=== PATIENT | female | born 1975 | race African-American/Black ===

== ENCOUNTER 2017-07-23 13:09 | Emergency (ER) | payer OTHER ==
[~2017-07-23] VITALS: Ht 157.5 cm; Wt 128.8 kg
--- NOTE | ~2017-07-23 | EKG ---
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
[2017-07-23 14:07] LABS: ABSOLUTE NEUTROPHILS 3.5 thou/uL (1.4-8.2); BASOPHILS 1.1 % (0.0-2.0); EOSINOPHILS 1.2 % (0.0-3.0); HEMOGLOBIN 12.4 gm/dL (12.0-15.0); LYMPHOCYTES 33.3 % (24.0-44.0); MCH 26.8 pg (26.0-34.0); MCHC 32.7 g/dL (28.0-37.0); MCV 81.9 fL (80.0-100.0); MONOCYTES 10.3 % (1.0-8.0); PLATELET COUNT 185 thou/uL (150-400); POLYS 54.1 % (36.0-66.0); RBC 4.64 mil/uL (4.20-5.00); RDW 15.7 % (10.5-14.5); WBC 6.5 thou/uL (4.0-11.0)
[2017-07-23 14:08] LABS: MANUAL DIFF NO
[2017-07-23 14:24] LABS: ANION GAP 6 mmol/L (7-16); BUN 7 mg/dL (7-18); CALCIUM 8.6 mg/dL (8.5-10.1); CHLORIDE 105 mmol/L (98-107); CO2 31 mmol/L (21-32); GLUCOSE 88 mg/dL (74-106); POTASSIUM 3.6 mmol/L (3.5-5.1); SODIUM 142 mmol/L (136-145)
[2017-07-23 14:25] LABS: TROPONIN-I < 0.04 ng/mL (<0.04-0.07)
[2017-07-23] MEDS ORDERED: ULTRAM 50MG TAB50 MG PO (15:19)
[2017-07-23 16:02] VITALS: BP 183/99
== END 2017-07-23 15:26 | disposition home or self-care (01) ==
LOC: ER 13:09
PROVIDERS: Nurse Practitioner
DX: R53.1 Weakness (principal); I10 Essential (primary) hypertension; M79.7 Fibromyalgia; G43.909 Migraine, unspecified, not intractable, without status migrainosus; M32.9 Systemic lupus erythematosus, unspecified; E11.9 Type 2 diabetes mellitus without complications; Z86.73 Personal history of transient ischemic attack (TIA), and cerebral infarction without residual deficits

== ENCOUNTER 2017-09-19 10:00 | Observation (INO) | payer OTHER ==
[~2017-09-19] VITALS: Ht 154.9 cm; Wt 152.4 kg
--- NOTE | ~2017-09-19 | EKG ---
[address] [place] [address] ELECTROCARDIOGRAM REPORT Name: SRINATH COOK Room #: 170-11 [facility]..#: [id number] Admission: 09/19/17 Attend Phys: Chapin Dale MD Discharge: Date of : 71 Report #: [id number] THIS REPORT FOR: //name// 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
[~2017-09-19 10:00] MED LIST: FUROSEMIDE 80 M80 M1 PO; HYDROCHLOROTHIA25 M1 PO; K-DUR 20 MEQ T20 MEQ PO; LYRICA 75 MG CA75 MG PO; LYRICA100 MG PO; MICARDIS HCT 81 EAC1 PO; TOPAMAX50 MG PO; ULTRAM 50MG TAB50 MG PO
[2017-09-19 10:10] VITALS: BP 209/98
[2017-09-19 10:36] LABS: ABSOLUTE NEUTROPHILS 3.9 thou/uL (1.4-8.2); BASOPHILS 1.2 % (0.0-2.0); EOSINOPHILS 1.6 % (0.0-3.0); HEMATOCRIT 38.9 % (37.0-47.0); HEMOGLOBIN 12.7 gm/dL (12.0-15.0); LYMPHOCYTES 34.5 % (24.0-44.0); MCH 27.1 pg (26.0-34.0); MCHC 32.7 g/dL (28.0-37.0); MCV 82.8 fL (80.0-100.0); MONOCYTES 7.4 % (1.0-8.0); PLATELET COUNT 182 thou/uL (150-400); POLYS 55.3 % (36.0-66.0); RDW 15.7 % (10.5-14.5)
[2017-09-19 10:44] LABS: MANUAL DIFF NO
[2017-09-19 10:45] LABS: ANION GAP 6 mmol/L (7-16); BUN 6 mg/dL (7-18); CALCIUM 8.8 mg/dL (8.5-10.1); CHLORIDE 102 mmol/L (98-107); CO2 28 mmol/L (21-32); CREATININE 0.6 mg/dL (0.6-1.0); GLUCOSE 94 mg/dL (74-106); SODIUM 136 mmol/L (136-145)
[2017-09-19 10:48] LABS: POTASSIUM 5.1 mmol/L (3.5-5.1)
[2017-09-19 10:52] LABS: APTT 24.6 Seconds (24.5-32.8); PROTIME 10.6 Seconds (9.3-11.4)
[2017-09-19 10:53] LABS: ALBUMIN 3.4 g/dL (3.4-5.0); ALKALINE PHOSPHATASE 101 U/L (46-116); MAGNESIUM 1.9 mg/dL (1.8-2.4); SGOT 40 U/L (15-37); SGPT 35 U/L (30-65); TROPONIN-I < 0.04 ng/mL (<0.04-0.07)
[2017-09-19 11:24] LABS: TOTAL PROTEIN 7.8 g/dL (6.4-8.2)
[2017-09-19 13:16] VITALS: BP 170/87
[2017-09-19 13:21] VITALS: BP 174/91
[2017-09-19] MEDS ORDERED: COREG25 MG PO (13:25)
[2017-09-19] MEDS ORDERED: ZANAFLEX4 MG PO (13:26)
[2017-09-19] MEDS ORDERED: LIPITOR 20 MG T20 M1 (13:27)
[2017-09-19] MEDS ORDERED: OVAR PO (13:27)
[2017-09-19] MEDS ORDERED: TOPROL XL50 MG (13:28)
[2017-09-19 14:07] VITALS: BP 175/104
[2017-09-19 19:26] VITALS: BP 179/94
[2017-09-20 00:35] VITALS: BP 122/65
[2017-09-20 04:03] VITALS: BP 102/59
[2017-09-20 05:43] LABS: ABSOLUTE NEUTROPHILS 6.7 thou/uL (1.4-8.2); BASOPHILS 0.1 % (0.0-2.0); EOSINOPHILS 0.1 % (0.0-3.0); HEMATOCRIT 36.6 % (37.0-47.0); HEMOGLOBIN 11.9 gm/dL (12.0-15.0); LYMPHOCYTES 16.4 % (24.0-44.0); MCH 26.8 pg (26.0-34.0); MCHC 32.5 g/dL (28.0-37.0); MCV 82.2 fL (80.0-100.0); MONOCYTES 8.3 % (1.0-8.0); PLATELET COUNT 182 thou/uL (150-400); POLYS 75.1 % (36.0-66.0); RBC 4.45 mil/uL (4.20-5.00); RDW 15.9 % (10.5-14.5)
[2017-09-20 05:44] LABS: MANUAL DIFF NO
[2017-09-20 05:58] LABS: ANION GAP 6 mmol/L (7-16); BUN 15 mg/dL (7-18); CHLORIDE 101 mmol/L (98-107); CHOLESTEROL 150 mg/dL (<200); CO2 28 mmol/L (21-32); CREATININE 1.5 mg/dL (0.6-1.0); GLUCOSE 109 mg/dL (74-106); HDL CHOLESTEROL 54 mg/dL (>40); LDL CHOLESTEROL 85 mg/dL (<100); POTASSIUM 4.1 mmol/L (3.5-5.1); SERUM ASSESSMENT Clear; SODIUM 135 mmol/L (136-145); TC:HDL 2.8 Ratio (Not establshd); TRIGLYCERIDE 55 mg/dL (<150); VLDL 11 mg/dL (<40)
[2017-09-20 07:39] VITALS: BP 129/77
[2017-09-20 11:33] VITALS: BP 128/68
[2017-09-20] MEDS ORDERED: LIPITOR 20 MG T20 M1 PO (13:24)
[2017-09-20] MEDS ORDERED: K-DUR 20 MEQ T20 MEQ PO (13:25)
[2017-09-20] MEDS ORDERED: FUROSEMIDE 80 M80 M1 PO (13:25)
[2017-09-20] MEDS ORDERED: COREG25 MG PO (13:25)
[2017-09-20] MEDS ORDERED: HYDROCHLOROTHIA25 M1 PO (13:26)
[2017-09-20 14:16] VITALS: BP 128/68
[2017-09-20 14:18] VITALS: BP 128/68
== END 2017-09-20 15:37 | disposition home or self-care (01) ==
LOC: ER 10:00 → 3W 12:58 → EROBS 12:58 → 3W 13:43 → ENTRNSPT 09-20 15:26 → EDTRNSPTSTS 09-20 15:29 → 3W 09-20 15:37
PROVIDERS: Emergency Medicine; Nurse Practitioner
DX: R07.89 Other chest pain (principal); E66.01 Morbid (severe) obesity due to excess calories; I10 Essential (primary) hypertension; E11.9 Type 2 diabetes mellitus without complications; G43.909 Migraine, unspecified, not intractable, without status migrainosus; I16.1 Hypertensive emergency; G47.33 Obstructive sleep apnea (adult) (pediatric); Z23 Encounter for immunization

== ENCOUNTER 2017-10-25 20:08 | Emergency (ER) | payer OTHER ==
[~2017-10-25] VITALS: Ht 154.9 cm; Wt 149.7 kg
--- NOTE | ~2017-10-25 | EKG ---
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 : 1975 Requested By: Arnel Mendiola Order Number: [id number] MD: Ross Bowser Measurements Intervals [place] Rate: 96 P: 60 [place]: 152 QRS: 3 QRSD: 76 T: QT: 345 QTc: 436 Interpretive Statements Sinus rhythm Probable left atrial enlargement Left ventricular hypertrophy Borderline T abnormalities, diffuse leads Compared to ECG 09/19/2017 10:12:31 Left ventricular hypertrophy now present T-wave abnormality still present Electronically Signed On 10-26-2017 8:29:19 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
[~2017-10-25 20:08] MED LIST changes: +COREG25 MG PO; +LIPITOR 20 MG T20 M1; +LIPITOR 20 MG T20 M1 PO; +OVAR PO; +TOPROL XL50 MG; +ZANAFLEX4 MG PO
[2017-10-25 20:38] LABS: URINE BILIRUBIN NEGATIVE (Negative); URINE BLOOD TRACE (Negative); URINE COLOR YELLOW; URINE GLUCOSE-RANDOM* 3+ (Negative); URINE KETONES TRACE (Negative); URINE LEUKOCYTES-REFLEX NEGATIVE (Negative); URINE PROTEIN (DIPSTICK) 2+ (Negative); URINE UROBILINOGEN 0.2 E.U./dl (0.2-1.0)
[2017-10-25 20:42] LABS: BASOPHILS 0.5 % (0.0-2.0); EOSINOPHILS 0.3 % (0.0-3.0); HEMATOCRIT 40.2 % (37.0-47.0); HEMOGLOBIN 12.8 gm/dL (12.0-15.0); LYMPHOCYTES 17.4 % (24.0-44.0); MCH 26.2 pg (26.0-34.0); MCHC 31.9 g/dL (28.0-37.0); MCV 82.2 fL (80.0-100.0); MONOCYTES 0.7 % (1.0-8.0); PLATELET COUNT 210 thou/uL (150-400); POLYS 81.1 % (36.0-66.0); RBC 4.89 mil/uL (4.20-5.00); RDW 15.4 % (10.5-14.5); WBC 7.4 thou/uL (4.0-11.0)
[2017-10-25 20:50] LABS: SQUAMOUS 0-3 Few /LPF (0-3)
[2017-10-25 20:51] LABS: CASTS None Seen /LPF (None Seen); CRYSTALS None Seen /LPF (None Seen); URINE RBC 0-2 Rare /HPF (0-2); URINE WBC-REFLEX 0-5 Rare /HPF (0-5)
[2017-10-25 20:56] LABS: ANION GAP 11 mmol/L (7-16); BUN 11 mg/dL (7-18); CALCIUM 9.3 mg/dL (8.5-10.1); CHLORIDE 103 mmol/L (98-107); CO2 25 mmol/L (21-32); CREATININE 1.3 mg/dL (0.6-1.0); GLUCOSE 250 mg/dL (74-106); POTASSIUM 4.4 mmol/L (3.5-5.1); SODIUM 139 mmol/L (136-145)
[2017-10-25 21:02] LABS: MANUAL DIFF NO
[2017-10-25 21:04] LABS: ALBUMIN 3.4 g/dL (3.4-5.0); ALKALINE PHOSPHATASE 114 U/L (46-116); SGOT 41 U/L (15-37); SGPT 43 U/L (30-65); TOTAL BILIRUBIN 0.7 mg/dL (<0.1-1.0); TOTAL PROTEIN 8.5 g/dL (6.4-8.2); TROPONIN-I < 0.04 ng/mL (<0.06)
[2017-10-25] MEDS ORDERED: ZOFRAN ODT8 MG PO (22:03)
[2017-10-25] MEDS ORDERED: ACYCLOVIR 800800 MG PO (22:27)
== END 2017-10-25 22:36 | disposition home or self-care (01) ==
LOC: ER 20:08
PROVIDERS: Emergency Medicine
DX: R10.12 Left upper quadrant pain (principal); R82.71 Bacteriuria; E11.65 Type 2 diabetes mellitus with hyperglycemia; M32.9 Systemic lupus erythematosus, unspecified; M79.7 Fibromyalgia; I10 Essential (primary) hypertension; G43.909 Migraine, unspecified, not intractable, without status migrainosus; Z90.49 Acquired absence of other specified parts of digestive tract; Z98.890 Other specified postprocedural states; Z88.8 Allergy status to other drugs, medicaments and biological substances

== ENCOUNTER 2018-05-08 11:16 | Emergency (ER) | payer OTHER ==
[~2018-05-08] VITALS: Ht 154.9 cm; Wt 147.4 kg
--- NOTE | ~2018-05-08 | EKG ---
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: [facility] : 1975 Requested By: Manju Mederos Order Number: [id number] MD: Roel Rascon Measurements Intervals [place] Rate: 77 P: 65 [place]: 141 QRS: 25 QRSD: 83 T: 14 QT: 365 QTc: 414 Interpretive Statements Sinus rhythm Borderline T abnormalities, lateral leads Compared to ECG 10/25/2017 20:56:44 T-wave abnormality still present Electronically Signed On 05-08-2018 12:29:21 CDT by Roel Rascon [email or web address] <ELECTRONICALLY SIGNED> By: Roel Rascon MD, [facility] 05/08/18 1229 1124 1124 Roel Rascon MD, FAC /EPI
[~2018-05-08 11:16] MED LIST changes: +ACYCLOVIR 800800 MG PO; +NAPROSYN500 MG PO; +ZOFRAN ODT8 MG PO
[2018-05-08 11:53] LABS: ABSOLUTE NEUTROPHILS 3.7 thou/uL (1.4-8.2); BASOPHILS 0.9 % (0.0-2.0); HEMATOCRIT 40.2 % (37.0-47.0); HEMOGLOBIN 12.9 gm/dL (12.0-15.0); LYMPHOCYTES 33.1 % (24.0-44.0); MCH 26.2 pg (26.0-34.0); MCHC 32.1 g/dL (28.0-37.0); MCV 81.5 fL (80.0-100.0); MONOCYTES 6.1 % (1.0-8.0); PLATELET COUNT 196 thou/uL (150-400); POLYS 58.9 % (36.0-66.0); RBC 4.93 mil/uL (4.20-5.00); RDW 16.4 % (10.5-14.5); WBC 6.3 thou/uL (4.0-11.0)
[2018-05-08 12:30] LABS: ANION GAP 4 mmol/L (7-16); BUN 10 mg/dL (7-18); CALCIUM 8.9 mg/dL (8.5-10.1); CHLORIDE 104 mmol/L (98-107); CO2 30 mmol/L (21-32); CREATININE 0.9 mg/dL (0.6-1.0); GLUCOSE 109 mg/dL (74-106); POTASSIUM 3.3 mmol/L (3.5-5.1); SODIUM 138 mmol/L (136-145); TROPONIN-I < 0.04 ng/mL (<0.06)
[2018-05-08] MEDS ORDERED: MOBIC7.5 MG PO (12:53)
== END 2018-05-08 12:55 | disposition home or self-care (01) ==
LOC: ER 11:16
PROVIDERS: Physician Assistant
DX: R07.89 Other chest pain (principal); G89.29 Other chronic pain; I10 Essential (primary) hypertension; E11.9 Type 2 diabetes mellitus without complications; M79.7 Fibromyalgia; G43.909 Migraine, unspecified, not intractable, without status migrainosus; Z90.49 Acquired absence of other specified parts of digestive tract; Z88.8 Allergy status to other drugs, medicaments and biological substances